=== PATIENT | female | born 1995 | race Caucasian/White ===

== ENCOUNTER 2017-11-04 05:36 | Emergency (ER) | payer MEDICAID ==
[2017-11-04] MEDS ORDERED: Sodium Chloride 0.9% 1,000 ML IV ONE (05:55)
[2017-11-04] MEDS ORDERED: Metoclopramide 10 MG/2 ML SDV IVPUSH ONE (05:56)
[2017-11-04] MEDS ORDERED: Ketorolac 30 MG/ML SDV IVPUSH ONE (05:56)
[2017-11-04] MEDS ORDERED: diphenhydrAMINE 50 MG/ML SDV IVPUSH ONE (05:57)
[2017-11-04] MEDS ORDERED: Acetaminophen 500 MG Tab PO ONE (06:45)
[2017-11-04 07:11] VITALS: BP 133/90
--- NOTE | 2017-11-04 13:14 | ER ---
DATE SEEN: 11/04/2017 HISTORY OF PRESENT ILLNESS: Gely is a 22-year-old woman who was not . Last menstrual period was indeterminate. She is on Depo-Provera for contraception. She had the onset of migraine 2 days ago and she has no associated fever, chills, vomiting, shortness of breath, chest pain, neck stiffness, sinus congestion, allergic rhinitis, or allergic symptoms, but she has not used Imitrex for this current bout. She is on Depo-Provera. She noted that with the onset of the headache, she had mild blurred vision, but no aura. Last meal yesterday was a toast and she has used Powerade. The patient works at [employer] and denies being dehydrated before this, but has not had fluids yesterday, but consequently is mildly dehydrated at present. MEDICATIONS: Venlafaxine for depression 150 mg daily. ALLERGIES: None. REVIEW OF SYSTEMS: 12-point review of systems is otherwise negative. PHYSICAL EXAMINATION: VITAL SIGNS: Blood pressure 141/91, heart rate is 88, respirations 18, oxygen saturation 99%, and temperature is 36.8 degrees centigrade. HEENT: Alert woman. She has mild facial erythema. Hearing is intact. Pharynx is without abnormality. Pupils are equal, they do react to light. They have conjugate gaze. She is sensitive to light. NECK: Supple. No thyromegaly or masses in the neck. No cervical adenopathy. LUNGS: Clear without rales, rhonchi, or wheezes. HEART: S1, S2. No murmur. No arrhythmia. No tachycardia. ABDOMEN: Soft. No guarding, no abdominal discomfort, no CVA percussion tenderness. Muscle strength in upper and lower extremities is normal. Deep tendon reflexes are normal in upper and lower extremities. Cranial nerves 2 through 12 are intact. Gait intact. Romberg negative. No dysmetria. No pronator drift. No muscle weakness in upper and lower extremities. ASSESSMENT: Migraine/headache. She was given medications, Reglan 10 mg IV, Toradol 30 mg IV, Benadryl 50 mg IV, and 1000 mg Tylenol p.o. within 10-15 minutes after the first admission IV and these IV medications, the patient's headache has gone from a 7 down to 4-5. She is feeling much better. The patient dismissed with prescriptions available to use Toradol 10 p.o., Reglan 10 p.o., Tylenol 1000 mg p.o., and Benadryl 50 mg p.o., take stat with onset of headache in the future. She needs to hydrate herself with at least 2 quarts of water a day. Follow up with doctor as needed next week. DIAGNOSES: 1. Headache. 2. Migraine component with photophobia and phonophobia. 3. Amenorrhea secondary to Depo-Provera contraception. FOLLOWUP: Follow up with doctor as needed within the next week. /[id number] IRIS/YANI
== END 2017-11-04 07:05 | disposition home or self-care (01) ==
LOC: FB.ED 05:36
DX: G43.909 Migraine, unspecified, not intractable, without status migrainosus (principal); N91.1 Secondary amenorrhea; F32.9 Major depressive disorder, single episode, unspecified; Z79.899 Other long term (current) drug therapy
CPT/HCPCS: 96361; 96374; 96375; 99283; A9270-GY; J1200; J1885; J2765; J7040

== ENCOUNTER 2018-01-31 17:56 | Emergency (ER) | payer MEDICAID ==
[2018-01-31] MEDS ORDERED: Metoprolol Tartrate 25 MG Tab PO SCH (19:00)
[2018-01-31 19:10] VITALS: BP 145/99
--- NOTE | 2018-01-31 20:15 | EDM.PDOC ---
ED HPI GENERAL MEDICAL PROBLEM - General Chief Complaint: Chest Pain Stated Complaint: chest pain Time Seen by Provider: 01/31/18 18:12 Source of Information: Reports: Patient History Limitations: Reports: No Limitations - History of Present Illness INITIAL COMMENTS - FREE TEXT/NARRATIVE: 23 year od woman wiht history of high BP THIS WEEKEND . SHE TAKES HER BP AT HOME AND NOTE 01/25/18 AND 01/27/18 INCREASED BP, >150 SYSTOLOIC ON SHE HAD A MIGRAINE AND THE BP WHEN SEEN IN THE OFFICE WAS NORMAL, ON 12/2817 SHE A RIGHT RETOROORBITAL HEADACHE . SHE IS NOT ON BP MED . THE THE PAST SHE WAS TREATED FOR HIGH FOR 1 MONTH AND THE MED WAS STOPPED AFTER 1 MONTH.YESTERDAY WATCHED SOFTBALL GAME AND HAD 5 BEERS IN EVENING.TODAY THE BP WAS 158/108 AT NOON SO SHE CAME TO THE ED FOR FURTHER EVALUATION SHE SUTTON A HX OF TAKING BP MED DURING HYPERTENSION OF ON 01/28/18 SHE DID NOT FEEL WELL AFTER A DAY OF ELEVATED BP Quality: Reports: Other (SHE DIDNOTHAVE CHEST PAIN WHEN I TALKED TO HER. SHE IS CONCERNED ABOUT HER BP ELEVATION) mid chest Pain Score (Numeric/FACES): 6 - Related Data Allergies Allergy/AdvReac Type Severity Reaction Status Date / Time No Known Allergies Allergy Verified 01/31/18 18:21 Home Meds: Home Meds Ketorolac Tromethamine 10 mg PO ASDIRECTED #20 tablet 11/04/17 [Rx] Metoclopramide HCl [Reglan] 10 mg PO ASDIRECTED #20 tablet 11/04/17 [Rx] Venlafaxine [Effexor XR] 150 mg PO DAILY 11/04/17 [History] Acetaminophen/HYDROcodone [[place] 325-5 MG] 1 - 2 tab PO Q6H PRN #20 tab [Rx] Amitriptyline [Elavil] 25 mg PO BEDTIME 01/27/18 [History] Rizatriptan Benzoate [Rizatriptan] 5 mg PO ASDIRECTED 01/27/18 [History] Sulfamethoxazole/Trimethoprim [Bactrim Ds Tablet] 1 each PO BID #20 tablet 01/27 [Rx] Metoprolol Tartrate 12.5 mg PO BID #30 tablet 01/31/18 [Rx] Past Medical History - Past Health History Medical/Surgical History: Denies Medical/Surgical History HEENT History: Reports: Impaired Vision Cardiovascular History: Reports: Hypertension Other Cardiovascular History: preeclampsia Other Respiratory History: see above Gastrointestinal History: Reports: None 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: Musculoskeletal History: Reports: Fracture, Other (See Below) Other Musculoskeletal History: L bunion repair, hx fx collar bone, L wrist fx Neurological History: Reports: Migraines Psychiatric History: Reports: Anxiety, Panic Attack Other Psychiatric History: sl anxois at times Endocrine/Metabolic History: Reports: Obesity/BMI 30+ Dermatologic History: Reports: Other (See Below) Other Dermatologic History: hx boils, hx MRSA - Infectious Disease History Infectious Disease History: Reports: MRSA - Past Surgical History HEENT Surgical History: Reports: Oral Surgery Respiratory Surgical History: Reports: None Neurological Surgical History: Reports: None Musculoskeletal Surgical History: Reports: Other (See Below) Social & Family History - Family History Family Medical History: Unobtainable - Tobacco Use Smoking Status *Q: Never Smoker - Caffeine Use Caffeine Use: Reports: Soda - Recreational Drug Use Recreational Drug Use: No ED ROS GENERAL - Review of Systems Review Of Systems: See Below Constitutional: Reports: No Symptoms HEENT: Reports: No Symptoms, Vertigo Cardiovascular: Reports: No Symptoms Endocrine: Reports: No Symptoms GI/Abdominal: Reports: No Symptoms : Reports: No Symptoms Musculoskeletal: Reports: No Symptoms Skin: Reports: No Symptoms Neurological: Reports: No Symptoms Psychiatric: Reports: No Symptoms Hematologic/Lymphatic: Reports: No Symptoms Immunologic: Reports: No Symptoms ED EXAM, GENERAL - Physical Exam Exam: See Below Free Text/Narrative:: ALERT, MILDLY OVER WEIGHT, IN NO ACUTE DISTRESS BUT CONCERNED ABUT HER ELEVATED BP[ Exam Limited By: No Limitations General Appearance: Alert, WD/WN, Anxious, Mild Distress Eye Exam: Bilateral Eye: Normal Fundi, Normal Inspection Ears: Normal External Exam Nose: Normal Inspection Throat/Mouth: Normal Inspection Head: Atraumatic, Sinus Tenderness Neck: Normal Inspection Respiratory/Chest: No Respiratory Distress Cardiovascular: Normal Peripheral Pulses, Regular Rate, Rhythm, No Edema, No Gallop, No JVD, No Murmur, No Rub GI/Abdominal: Normal Bowel Sounds, Soft, Non-Tender, No Organomegaly, No Distention, No Abnormal Bruit Back Exam: Normal Inspection Extremities: Normal Inspection Neurological: Alert, Oriented, CN II-XII Intact, Normal Cognition, Normal Gait, Normal Reflexes, No Motor/Sensory Deficits Psychiatric: Normal Affect Skin Exam: Warm, Dry Lymphatic: No Adenopathy Course - Vital Signs Last Recorded V/S: Last Vital Signs Temp 36.7 C 01/31/18 19:15 Pulse 72 01/31/18 19:15 Resp 17 01/31/18 19:15 BP 145/99 H 01/31/18 19:15 Pulse Ox 100 01/31/18 19:15 - Orders/Labs/Meds Orders: Active Orders 24 hr Category Date Time Status EKG 12 Lead [EK] Routine Ther 01/31/18 18:41 Ordered Meds: Medications Discontinued Medications Generic Name Dose Route Start Last Admin Trade Name Matthew PRN Reason Stop Dose Admin Metoprolol Tartrate 12.5 mg 01/31/18 19:00 01/31/18 19:05 Lopressor PO 12.5 mg Q12H JENARO Administration Departure - Departure Time of Disposition: 19:00 Disposition: Home, Self-Care 01 Clinical Impression: Hypertension Qualifiers: Hypertension type: essential hypertension Qualified Code(s): I10 - Essential ( primary) hypertension Chest pain Qualifiers: Chest pain type: unspecified Qualified Code(s): R07.9 - Chest pain, unspecified Prescriptions: Metoprolol Tartrate 12.5 mg PO BID #30 tablet Instructions: Hypertension, [id number] Referrals: Loki Del Castillo MD [Primary Care Provider] - Forms: ED Department Discharge Additional Instructions: trial of metoprolol 12.5 mg twice a day follow up with your MD in the next 1-2 weeks check your BP frequently in the next weeek and record on 3x 5 card and keep in your purse - My Orders Last 24 Hours: My Active Orders 01/31/18 18:41 EKG 12 Lead [EK] Routine - Assessment/Plan Last 24 Hours: My Active Orders 01/31/18 18:41 EKG 12 Lead [EK] Routine
== END 2018-01-31 19:10 | disposition home or self-care (01) ==
LOC: FB.ED 17:56
DX: I10 Essential (primary) hypertension (principal); R07.9 Chest pain, unspecified; Z79.899 Other long term (current) drug therapy
CPT/HCPCS: 93005; 99283; A9270

== ENCOUNTER 2021-05-06 18:08 | Emergency (ER) | payer BC ==
[2021-05-06] MEDS ORDERED: Promethazine 25 MG/ML SDV IM STA (18:18)
[2021-05-06] MEDS ORDERED: Ondansetron 4 MG Tab.DIS PO ONE (18:51)
--- NOTE | 2021-05-06 19:40 | EDM.PDOC ---
ED HPI GENERAL MEDICAL PROBLEM - General Chief Complaint: ACADEMIC COORDINATOR Problem Stated Complaint: BLEEDING W/ Time Seen by Provider: 05/06/21 18:40 Source of Information: Reports: Patient History Limitations: Reports: No Limitations - History of Present Illness INITIAL COMMENTS - FREE TEXT/NARRATIVE: Patient presented to the Ed because of N/V/D for 3 days and today she had v aginal spotting it progressed to bleeding and passing out some clots with associated cramping. Abdomen Pain Score (Numeric/FACES): 5 - Related Data Allergies Allergy/AdvReac Type Severity Reaction Status Date / Time No Known Allergies Allergy Verified 01/31/18 18:21 Home Meds: Home Meds Ketorolac Tromethamine 10 mg PO ASDIRECTED #20 tablet 11/04/17 [Rx] Metoclopramide HCl [Reglan] 10 mg PO ASDIRECTED #20 tablet 11/04/17 [Rx] Venlafaxine [Effexor XR] 150 mg PO DAILY 11/04/17 [History] Acetaminophen/HYDROcodone [[place] 325-5 MG] 1 - 2 tab PO Q6H PRN #20 tab 01/27/18 [Rx] Amitriptyline [Elavil] 25 mg PO BEDTIME 01/27/18 [History] Rizatriptan Benzoate [Rizatriptan] 5 mg PO ASDIRECTED 01/27/18 [History] Sulfamethoxazole/Trimethoprim [Bactrim Ds Tablet] 1 each PO BID #20 tablet 01/27/18 [Rx] Metoprolol Tartrate 12.5 mg PO BID #30 tablet 01/31/18 [Rx] Ondansetron [Zofran ODT] 4 mg PO Q4H PRN #7 tab.dis 05/06/21 [Rx] Past Medical History - Past Health History Medical/Surgical History: Denies Medical/Surgical History HEENT History: Reports: Impaired Vision Cardiovascular History: Reports: Hypertension Other Cardiovascular History: preeclampsia Other Respiratory History: see above Gastrointestinal History: Reports: None ACADEMIC 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: Other ACADEMIC COORDINATOR History: Musculoskeletal History: Reports: Fracture, Other (See Below) Other Musculoskeletal History: L bunion repair, hx fx collar bone, L wrist fx Neurological History: Reports: Migraines Psychiatric History: Reports: Anxiety, Panic Attack Other Psychiatric History: sl anxois at times Endocrine/Metabolic History: Reports: Obesity/BMI 30+ Dermatologic History: Reports: Other (See Below) Other Dermatologic History: hx boils, hx MRSA - Infectious Disease History Infectious Disease History: Reports: MRSA - Past Surgical History HEENT Surgical History: Reports: Oral Surgery Cardiovascular Surgical History: Reports: Other (See Below) Other Cardiovascular Surgeries/Procedures: sob today may have escalated with migrane Respiratory Surgical History: Reports: None Neurological Surgical History: Reports: None Musculoskeletal Surgical History: Reports: Other (See Below) Other Musculoskeletal Surgeries/Procedures:: l bunionectomy Social & Family History - Family History Family Medical History: Unobtainable - Tobacco Use Tobacco Use Status *Q: Never Tobacco User - Caffeine Use Caffeine Use: Reports: None ED ROS GENERAL - Review of Systems Review Of Systems: See Below Constitutional: Reports: No Symptoms HEENT: Reports: No Symptoms Respiratory: Reports: No Symptoms Cardiovascular: Reports: No Symptoms Endocrine: Reports: No Symptoms GI/Abdominal: Reports: Abdominal Pain, Diarrhea, Nausea, Vomiting : Reports: No Symptoms Musculoskeletal: Reports: No Symptoms Skin: Reports: No Symptoms Neurological: Reports: No Symptoms Psychiatric: Reports: No Symptoms ED EXAM, GENERAL - Physical Exam Exam: See Below Exam Limited By: No Limitations General Appearance: Alert, No Apparent Distress Eye Exam: Bilateral Eye: PERRL Ears: Normal External Exam, Normal Canal Nose: Normal Inspection, Normal Mucosa, No Blood Throat/Mouth: Normal Inspection, Normal Lips, Normal Teeth Head: Atraumatic, Normocephalic Neck: Normal Inspection, Supple, Non-Tender, Full Range of Motion Respiratory/Chest: No Respiratory Distress, Lungs Clear, Normal Breath Sounds, No Accessory Muscle Use, Chest Non-Tender Cardiovascular: Normal Peripheral Pulses, Regular Rate, Rhythm, No Edema GI/Abdominal: Normal Bowel Sounds, Soft, Non-Tender, No Organomegaly, No Distention Back Exam: Normal Inspection, Full Range of Motion Extremities: Normal Inspection, Normal Range of Motion, Non-Tender, No Pedal Edema, Normal Capillary Refill Neurological: Alert, Oriented, CN II-XII Intact, Normal Cognition, Normal Reflexes, No Motor/Sensory Deficits Psychiatric: Normal Affect, Normal Mood Skin Exam: Warm, Intact, Normal Color Course - Vital Signs Text/Narrative:: HCG=5 Zofran ODT 4 mg PO x1 Phenergan 25 mg IM x1 Last Recorded V/S: Last Vital Signs Temp 36.4 C 05/06/21 18:30 Pulse 89 05/06/21 18:30 Resp 18 05/06/21 18:30 BP 132/83 05/06/21 18:30 Pulse Ox 98 05/06/21 18:30 - Orders/Labs/Meds Labs: Laboratory Tests 05/06/21 05/06/21 05/06/21 Range/Units 18:38 18:38 18:38 WBC 4.6 (3.0-10.3) x10-3/uL RBC 5.18 (3.60-5.20) x10(6)uL Hgb 15.4 (11.4-15.5) g/dL Hct 46.5 (34.2-48.2) % MCV 89.7 (76.7-100.5) fL MCH 29.7 (23.9-33.9) pg MCHC 33.1 (31.9-34.8) g/dL RDW 12.6 (12.3-16.5) % Plt Count 143 L (151-488) x10(3)uL MPV 10.1 (7.1-12.4) fL Neut % (Auto) 60.6 (30.8-76.2) % Lymph % (Auto) 27.7 (18.4-52.1) % [place] % (Auto) 10.2 (4.4-15.7) % Eos % (Auto) 0.8 (0.6-8.1) % Baso % (Auto) 0.7 (0.2-1.5) % Neut # (Auto) 2.8 (1.5-6.3) x10-3/uL Lymph # (Auto) 1.3 (1.0-4.4) x10-3/uL [place] # (Auto) 0.5 (0.3-1.0) x10-3/uL Eos # (Auto) 0.0 (0.0-0.8) x10-3/uL Baso # (Auto) 0.0 (0.0-0.1) x10-3/uL Sodium 137 (135-145) mmol/L Potassium 3.5 (3.5-5.3) mmol/L Chloride 101 (100-110) mmol/L Carbon Dioxide 23 (21-32) mmol/L BUN 16 (7-18) mg/dL Creatinine 1.0 (0.55-1.02) mg/dL Est Cr Clr Drug Dosing 66.83 mL/min Estimated GFR (MDRD) > 60 (>60) BUN/Creatinine Ratio 16.0 (9-20) Glucose 100 (80-116) mg/dL Calcium 8.3 L (8.6-10.2) mg/dL HCG, Quant < 5 L (<5) mIU/mL Meds: Medications Discontinued Medications Generic Name Dose Route Start Last Admin Trade Name Freq PRN Reason Stop Dose Admin Ondansetron HCl 4 mg 05/06/21 18:51 05/06/21 18:54 Ondansetron 4 Mg Tab.Dis PO 05/06/21 18:52 4 mg ONETIME ONE Administration Promethazine HCl 25 mg 05/06/21 18:18 05/06/21 18:22 Promethazine 25 Mg/Ml Sdv IM 05/06/21 18:19 25 mg NOW STA Administration Departure - Departure Time of Disposition: 19:40 Disposition: Home, Self-Care 01 Condition: Good (Vaginal bleeding) Clinical Impression: Vaginal bleeding before 22 weeks gestation - Discharge Information Prescriptions: Ondansetron [Zofran ODT] 4 mg PO Q4H PRN #7 tab.dis PRN Reason: Nausea Instructions: Vaginal Bleeding During , First Trimester Referrals: Marlena Steele NP [Primary Care Provider] - Forms: ED Department Discharge Additional Instructions: Your HCG level is 5, that means it's below a level Call your OB doctor tomorrow Take zofran ODT 4 mg every 4 hours as needed for nausea Sepsis Event Note (ED) - Evaluation Sepsis Screening Result: No Definite Risk - Focused Exam Vital Signs: Vital Signs Temp Pulse Resp BP Pulse Ox 05/06/21 18:30 36.4 C 89 18 132/83 98
[2021-05-06] MEDS ORDERED: Ketorolac 30 MG/ML SDV IM ONE (20:17)
[2021-05-06 21:19] VITALS: BP 142/103; PULSE 91
== END 2021-05-06 20:25 | disposition home or self-care (01) ==
LOC: FB.ED 18:08
DX: O20.9 Hemorrhage in early pregnancy, unspecified (principal); I10 Essential (primary) hypertension; Z3A.01 Less than 8 weeks gestation of pregnancy
CPT/HCPCS: 36415; 80048; 84702; 85025; 96372; 99284; A9270; J1885; J2550